=== PATIENT | female | born 1995 | race Two or more races ===

== ENCOUNTER 2022-09-29 06:25 | Inpatient (IN) ==
[2022-09-29] MEDS ORDERED: PITOCIN ONE (06:41)
[2022-09-29] MEDS ORDERED: D5 1/2 NS 1,000 ML 1,000 ML IV ONE (06:41)
[2022-09-29] MEDS ORDERED: BETADINE SOLN ONE (06:41)
[2022-09-29] MEDS ORDERED: D5 1/2 NS 1,000 mL + PITOCIN 20 UNITS/L IV 20 UNITS/1,000 ML BAG IV ONE (06:42)
[2022-09-29] MEDS ORDERED: D5 LR + PITOCIN 10 UNITS/L 10 UNITS/1,000 ML BAG IV ONE (06:42)
--- NOTE | 2022-09-29 07:16 | DR.OB ---
OB Quick Note - Assessment/Plan Assessment/Plan: L&D 09/29/22 at 7:05am S-No complaint. O-Afebrile,VSS VZU=140 with good LTV, +accel, no decel. CTX=none CVX=2-3cm/50%/-1/VTX AROM with clear fluid. IUPC and FSE placed. A-IUP at 39 0/7 weeks for induction P-Begin pitocin induction Anticipate
[2022-09-29] MEDS ORDERED: PITOCIN IVP ONE (07:30)
[2022-09-29] MEDS ORDERED: NUBAIN INJ 20 MG AMP IVP PRN (07:30)
[2022-09-29] MEDS ORDERED: REGLAN INJ 10 MG VIAL IVP PRN (07:30)
[2022-09-29] MEDS ORDERED: D5 1/2 NS 1,000 ML 1,000 ML IV SCH (07:30)
[2022-09-29] MEDS ORDERED: MORPHINE SULFATE INJ 2 MG INJ IVP PRN (07:30)
[2022-09-29] MEDS ORDERED: D5 LR + PITOCIN 10 UNITS/L 10 UNITS/1,000 ML BAG IV PRN (07:30)
[2022-09-29] MEDS ORDERED: STADOL INJ IVP PRN (07:31)
[2022-09-29 08:04] LABS: BASOPHILS % (AUTO) 0.3 % (0.2-1.0); EOSINOPHILS # (AUTO) 0.1 x10^3/uL (0.0-0.2); HEMATOCRIT 36.6 % (36.0-47.0); HEMOGLOBIN 12.4 g/dL (12.0-16.0); LYMPHOCYTES # (AUTO) 1.7 X10^3/uL (1.3-2.9); LYMPHOCYTES % (AUTO) 15.9 % (21.0-51.0); MEAN CORPUSCULAR HEMOGLOBIN 28.2 pg (27.0-34.0); MEAN CORPUSCULAR HGB CONC 33.9 g/dL (33.0-35.0); MEAN CORPUSCULAR VOLUME 83.3 fL (80.0-100.0); MEAN PLATELET VOLUME 8.5 fL (7.4-11.0); MONOCYTES % (AUTO) 9.1 % (0.0-13.0); NEUTROPHILS # (AUTO) 7.9 x10^3/uL (2.2-4.8); NEUTROPHILS % (AUTO) 73.7 % (42.0-75.0); RED CELL DISTRIBUTION WIDTH 13.4 % (11.6-16.5); WHITE BLOOD COUNT 10.7 X10^3/uL (3.6-10.0)
[2022-09-29 08:09] LABS: BLOOD UREA NITROGEN 7 mg/dL (7-18); CALCIUM 8.6 mg/dL (8.5-10.1); CHLORIDE 104 mmol/L (98-107); CREATININE 0.55 mg/dL (0.55-1.02); SODIUM 138 mmol/L (136-145); eGFR NON BLACK RACES > 60 (>60)
[2022-09-29] MEDS ORDERED: STADOL INJ ONE (08:29)
[2022-09-29] MEDS ORDERED: ZOFRAN INJ 4 MG VIAL ONE (08:31)
[2022-09-29] MEDS ORDERED: FENTANYL VIAL INJ 100 mcg ONE (08:34)
[2022-09-29] MEDS ORDERED: NAROPIN EPIDURAL 0.2% 100 ML ONE (08:34)
[2022-09-29] MEDS ORDERED: LR 1,000 ML IV 1,000 ML IV ONE (08:34)
[2022-09-29 10:19] LABS: BILIRUBIN,URINE NEGATIVE (NEGATIVE); BLOOD/HEMOGLOBIN,URINE NEGATIVE (NEGATIVE); GLUCOSE, URINE NEGATIVE (NEGATIVE); KETONES,URINE NEGATIVE (NEGATIVE); LEUKOCYTE ESTERASE ,URINE NEGATIVE (NEGATIVE); NITRITES,URINE NEGATIVE (NEGATIVE); PROTEIN,URINE 1+ (NEGATIVE); UROBILINOGEN,URINE NORMAL (NORMAL)
[2022-09-29 10:28] LABS: APPEARANCE,URINE CLEAR (CLEAR); BACTERIA,URINE TRACE /HPF (NEGATIVE); COLOR,URINE YELLOW (YELLOW); HYALINE CASTS, URINE RARE /LPF (NEGATIVE); RBC,URINE 0-2 /HPF (0-3); SQUAMOUS EPITHELIAL CELL,UR RARE /HPF (NEGATIVE); TRANSITIONAL EPI CELLS,URINE FEW /HPF (NEGATIVE)
--- NOTE | 2022-09-29 12:08 | DR.OB ---
OB Quick Note - Assessment/Plan Assessment/Plan: L&D 09/29/21 at 12:05pm Pitocin=18mu/min. S-No complaint. s/p epidural. O-Afebrile,VSS JUT=400 with good LTV, +accel, no decel. CTX=q 1 1/2 to 2 min., about 45-55mmHg CVX=5cm/90%/0/VTX A-IUP at 39 0/7 weeks for induction P-Cont. pitocin induction Anticipate
--- NOTE | 2022-09-29 17:52 | DR.OB ---
OB Quick Note - Assessment/Plan Assessment/Plan: Delivery Note [employer] 09/29/22 at 5:18pm Patient complete and pushing. Head delivered over intact perineum. No nuchal cord. Nose and mouth bulb suctioned. Body delivered over intact perineum. Cord clamped x 2 and cut. handed to attendant. Cord sent for gases. Placenta delivered spontaneously / intact / 3 vessel cord. No CVX tears noted. A midline second degree tear noted and repaired with 0-vicryl in usual fashion. Viable male infant delivered by , wt=8'5" and 8/9, stable to NBN. Mother stable to RR. QRA=576py.
[2022-09-29] MEDS: D5 1/2 NS 1,000 ML 1,000 ML with PITOCIN 20 UNITS IV SCH ×2 (18:00)
[2022-09-29] MEDS ORDERED: AMBIEN PO PRN (18:21)
[2022-09-29] MEDS ORDERED: ADACEL or BOOSTRIX TDaP VACCINE IM ONE (18:21)
[2022-09-29] MEDS ORDERED: MILK OF MAGNESIA PO PRN (18:21)
[2022-09-29] MEDS: MOTRIN TAB 800 MG PO PRN (20:10)
[2022-09-29] MEDS: DERMOPLAST PAIN RELIEF SPRAY TOP PRN (20:18)
[2022-09-30] MEDS: D5 1/2 NS 1,000 ML 1,000 ML with PITOCIN 20 UNITS IV SCH ×6 (03:12→19:45)
[2022-09-30] MEDS: MOTRIN TAB 800 MG PO PRN ×3 (03:42→19:45)
[2022-09-30 05:02] LABS: HEMATOCRIT 34.8 % (36.0-47.0); HEMOGLOBIN 11.8 g/dL (12.0-16.0)
[2022-09-30] MEDS ORDERED: PRENATAL PLUS PO SCH (09:00)
[2022-09-30] MEDS: DERMOPLAST PAIN RELIEF SPRAY TOP PRN (19:56)
[2022-10-01] MEDS: D5 1/2 NS 1,000 ML 1,000 ML with PITOCIN 20 UNITS IV SCH ×2 (03:02)
[2022-10-01] MEDS: MOTRIN TAB 800 MG PO PRN (08:05)
[2022-10-01 08:15] VITALS: BP 115/68
== END 2022-10-01 11:44 | disposition home or self-care (01) | DRG 807 ==
LOC: LD 06:25 → MED/SURG 18:16
PROVIDERS: ADMIT Specialist; ATTEND Specialist
DX: O26.893 Other specified pregnancy related conditions, third trimester; Z37.0 Single live birth; O70.1 Second degree perineal laceration during delivery; Z3A.39 39 weeks gestation of pregnancy